=== PATIENT | female | born 1980 | race Caucasian/White ===

== ENCOUNTER 2017-09-19 10:00 | Observation (INO) | payer BC, SELFPAY ==
[2017-09-19 10:02] VITALS: BP 119/63; PULSE 101; RESP 18; TEMP 36.6; O2SAT 98; BMI 25.8
--- NOTE | 2017-09-19 10:14 | US_ITS ---
STUDY: ABDOMINAL ULTRASOUND - RIGHT UPPER QUADRANT REASON FOR VISIT: Female, 37 years old. Abdominal pain. TECHNIQUE: Ultrasound evaluation of the right upper quadrant was performed with real-time and static pinto-scale imaging. TECHNICAL QUALITY: Adequate. COMPARISON: None. FINDINGS: Liver: The liver measures 15.5 cm. There is normal echogenicity of the liver. The bile ducts are within normal limits. There is hepatic color flow. The direction of portal flow is hepatopetal. There is no demonstrated mass lesion. Gallbladder: Normal distended gallbladder. The gallbladder wall measures 3.0 mm. There is a negative sonographic Hanson's sign. There is no pericholecystic fluid. There are no gallstones. Common Bile Duct (C.B.D.): The common bile duct measures 3.0 mm. Pancreas: Normal size of the head, body and tail of the pancreas. There is normal echogenicity of the pancreas. There is no demonstrated pancreatic mass or cyst. Right Kidney: Normal size of the right kidney. The right kidney measures 13.7 cm x 4.6 centimeters x 4.0 cm. Normal renal cortex. The right cortex measures 1.2 cm. There is no demonstrated renal mass or cyst. There is no right hydronephrosis. US/Gallbladder IMPRESSION: Normal right upper quadrant ultrasound examination. Electronically Signed: Bebeto Monteiro MD at 12:02 EST Tel [phone], Service support ,
[2017-09-19] MEDS: Ondansetron 4 MG/2 ML Vial IV (10:38)
[2017-09-19] MEDS: 0.9% Normal Saline 1,000 ML 125 ML IV (10:38)
[2017-09-19] MEDS: HYDROmorphone 1 MG/ML Syringe IV ×3 (10:39→21:05)
[2017-09-19 10:48] LABS: Absolute Lymphocyte Count 1.82 X10^3/ul (0.83-4.51); Absolute Neutrophil Count 9.6 X10^3/uL (2.0-7.7); Basophil# 0.03 X10^3/uL; Basophil% 0.2 % (0-1); Eosinophil# 0.15 X10^3/uL; Eosinophils% 1.1 % (0-5); Hematocrit 35.8 % (37-47); Hemoglobin 11.6 g/dl (12.0-15.0); Lymphocyte # 1.82 X10^3/ul (4.0); Lymphocyte % 13.6 % (19-41); Mean Corp Hgb Conc 32.4 g/gl (32-36); Mean Corpuscular Hgb 28.6 pg (27.0-32.0); Mean Corpuscular Volume 88.4 fL (81-99); Mean Platelet Vol. 9.3 fl (6.2-12.0); Monocyte# 1.64 X10^3/uL; Monocyte% 12.3 % (0-10); Neutrophil % 72.1 % (47-70); Platelet Count 324 K/mm3 (150-450); RBC Distribution Width SD 38.7 fl (35.1-43.9); Red Blood Count 4.05 M/mm3 (4.2-5.4); White Blood Count 13.3 K/mm3 (4.4-11.0)
[2017-09-19 10:50] LABS: Differential Indicated SCAN CRITERIA MET; POSITIVE COUNT NO; POSITIVE DIFFERENTIAL YES; POSITIVE MORPHOLOGY NO
[2017-09-19 10:54] LABS: ALB/GLOB Ratio 0.6 RATIO (0.9-2.4); AST(SGOT) 8 U/L (15-37); Alanine Aminotransfer ALT/SGPT 15 U/L (12-78); Albumin, Serum 2.6 g/dL (3.4-5.0); Alkaline Phosphatase 118 U/L (45-117); Anion Gap 9 (5-15); BUN 8 mg/dL (7-18); BUN/Creat Ratio 11.8 RATIO (10-20); Calcium,Total 8.7 mg/dL (8.5-10.1); Chloride 104 mmol/L (98-107); Creatinine, Serum 0.68 mg/dL (0.55-1.02); EST Glomerular Filtration Rate 104 mL/min (>60); Est Glom Filt Rate - Afr Amer 126 mL/min (>60); Estimated Creatinine Clearance 110.15 ml/min; Globulin 4.5 g/dL (2.2-4.2); Glucose 104 mg/dL (70-110); Lipase 54 U/L (73-393); Potassium 3.3 mmol/L (3.5-5.1); Protein, Total 7.1 g/dL (6.4-8.2); Sodium Level 138 mmol/L (136-145)
[2017-09-19 11:05] LABS: Lactic Acid 0.8 mmol/L (0.4-2.0)
[2017-09-19 11:08] LABS: Pregnancy, Serum, hCG Quali. NEGATIVE Negative (0-9 Nonpreg)
[2017-09-19 12:14] LABS: Color, Urine Amber (Yellow); Glucose, Dipstick Normal (Normal); Ketone-Dipstick 5 mg/dl (Negative); Leukocyte Esterase-Dipstick 500 /ul (Negative); Nitrite-Dipstick Positive (Negative); Occult Blood-Urine 150 /ul (Negative); Protein-Dipstick 30 mg/dl (Negative); Urine Bilirubin Dipstick 1 mg/dL (Negative); Urine Clarity Cloudy (Clear); Urine Urobilinogen 4 mg/dl (Normal)
[2017-09-19 12:19] LABS: Red Blood Cells-Urine 0-5 SEEN /hpf (0-5); Squamous Epithelial Cells - UA 5-10 SEEN /hpf (5-10); White Blood Cells 25-50 SEEN /hpf (0-5)
[2017-09-19 12:20] LABS: Bacteria 4+ /hpf (None Seen); Mucous, Urine RARE /hpf (<or=2+)
[2017-09-19] MEDS: Ceftriaxone 1 GM/50 ML BAG IV ×2 (13:47→16:53)
--- NOTE | 2017-09-19 14:00 | ED.VISSUMM ---
- ER Visit Summary Date of Service: 09/19/17 Chief Complaint: [Abdominal pain/flank pain] History of Present Illness: The patient is a 37 F [presents to the emergency department chief complaint of right-sided abdominal pain/flank pain]. Patient states her pain started 3 days ago. Patient was seen [facility] where she had blood work and urine performed. She had an elevated white blood cell count at that time 16,000. CT scan of the flank obtained showed a normal appendix without any evidence of kidney stones. Patient was discharged to home and states that she was miserable all weekend. Presents with ongoing significant pain. She states that ibuprofen takes the edge off but then the pain comes back. She has had decreased appetite. She denies any nausea or vomiting. She denies any diarrhea. Patient has not had a fever. Physical Examination: [HEENT-PERRLA, EOMI. Cranial nerves II through XII grossly intact. TMs clear. Mucous membranes moist. No adenopathy. Cardiovascular-regular rate and rhythm without murmur or ectopy Lungs-clear to auscultation, chest wall stable without crepitus or subcu emphysema Abdomen-normoactive bowel sounds, soft, tender to palpation over the right upper quadrant and right lower quadrant. There is no rebound, rigidity, or peritoneal signs. Extremities-intact ?4, normal range of motion, normal pulses, atraumatic] Test Results: [CBC with differential obtained showed an elevated white blood cell count of 13.3, hemoglobin 11.6, hematocrit 36, platelets 324. Chemistries unremarkable. LFTs unremarkable. Alk phos was slightly elevated 118. Lipase was 54. Lactic acid was normal at 0.8. HCG was negative. Urinalysis was positive for nitrites, 500 leukocyte esterase, 25-50 WBCs, +4 bacteria]. Ultrasound of the right upper quadrant initially obtained was read as normal Emergency Department Course and Treatment: [Patient was medicated with Dilaudid and Zofran and given Rocephin 1 g IV. Patient had to be remedicated with another milligram of Dilaudid for pain.] Treatment Plan: [I obtained results from patient's visit to [facility]]. Patient CT scan showed a normal appendix without evidence of kidney stones. Her labs showed elevated white blood cell count of 16,000 and her urine was unremarkable at that time. At this point I do not feel any further imaging is indicated. Disposition: [Admit] Impression: [Urinary tract infection/early pyelonephritis] This note was generated with Fiz dictation software. It may contain incorrect words, spelling, and punctuation that were not noted in review of the chart prior to signing ED Disposition - Plan for ED Patient: Chief Complaint: Abd Pain Referrals: [facility] Doctor,Out of [Primary Care Provider] -
--- NOTE | 2017-09-19 14:05 | ED.DCSUM_ITS ---
- ER Visit Summary Date of Service: 09/19/17 Chief Complaint: [Abdominal pain/flank pain] History of Present Illness: The patient is a 37 F [presents to the emergency department chief complaint of right-sided abdominal pain/flank pain]. Patient states her pain started 3 days ago. Patient was seen [facility] where she had blood work and urine performed. She had an elevated white blood cell count at that time 16,000. CT scan of the flank obtained showed a normal appendix without any evidence of kidney stones. Patient was discharged to home and states that she was miserable all weekend. Presents with ongoing significant pain. She states that ibuprofen takes the edge off but then the pain comes back. She has had decreased appetite. She denies any nausea or vomiting. She denies any diarrhea. Patient has not had a fever. Physical Examination: [HEENT-PERRLA, EOMI. Cranial nerves II through XII grossly intact. TMs clear. Mucous membranes moist. No adenopathy. Cardiovascular-regular rate and rhythm without murmur or ectopy Lungs-clear to auscultation, chest wall stable without crepitus or subcu emphysema Abdomen-normoactive bowel sounds, soft, tender to palpation over the right upper quadrant and right lower quadrant. There is no rebound, rigidity, or peritoneal signs. Extremities-intact ?4, normal range of motion, normal pulses, atraumatic] Test Results: [CBC with differential obtained showed an elevated white blood cell count of 13.3, hemoglobin 11.6, hematocrit 36, platelets 324. Chemistries unremarkable. LFTs unremarkable. Alk phos was slightly elevated 118. Lipase was 54. Lactic acid was normal at 0.8. HCG was negative. Urinalysis was positive for nitrites, 500 leukocyte esterase, 25-50 WBCs, +4 bacteria]. Ultrasound of the right upper quadrant initially obtained was read as normal Emergency Department Course and Treatment: [Patient was medicated with Dilaudid and Zofran and given Rocephin 1 g IV. Patient had to be remedicated with another milligram of Dilaudid for pain.] Treatment Plan: [I obtained results from patient's visit to [facility]]. Patient CT scan showed a normal appendix without evidence of kidney stones. Her labs showed elevated white blood cell count of 16,000 and her urine was unremarkable at that time. At this point I do not feel any further imaging is indicated. Disposition: [Admit] Impression: [Urinary tract infection/early pyelonephritis] This note was generated with ClairMail dictation software. It may contain incorrect words, spelling, and punctuation that were not noted in review of the chart prior to signing ED Disposition - Plan for ED Patient: Chief Complaint: Abd Pain Referrals: [facility] Doctor,Out of [Primary Care Provider] -
[2017-09-19 14:46] VITALS: BP 120/76; PULSE 90; RESP 18; O2SAT 99
--- NOTE | 2017-09-19 14:56 | PCM.HP.STD ---
Problem List (1) Sepsis Status: Acute (2) Acute pyelonephritis Status: Acute (3) Anxiety Status: Chronic (4) Depression Status: Chronic History of Present Illness Date of Admission: 09/19/17 Chief Complaint: Right flank pain. The patient is a 37 year old F past medical history as mentioned above presented to the medicine because of right flank pain. Her symptoms started 4 days ago with right flank pain, sharp intense pain, 10 out of 10 in severity, extends down to the right side of the abdomen on the right groin, associated with poor appetite and nausea, aggravated by movement and without relieving factors. She reported subjective fever. On the second day after she had this pain started, she went to outside facility ER where she had blood work, urinalysis and CT scan abdomen and pelvis done and she was discharged home. I reviewed the blood work, urinalysis and a CT scan from the other facility. That CBC revealed significant leukocytosis with white blood cell count of 16,000. BMP was normal. Urinalysis revealed no evidence of acute cystitis. CT scan brain showed no acute findings, no kidney stones or hydronephrosis, normal appendix. Patient continued to have this severe pain without improvement and she decided to come to the emergency room today. She denied urinary symptoms. Denied constipation or diarrhea. In the emergency room, she was afebrile, tachycardic, blood pressure stable and pulse ox is 98% on room air. Her routine blood work is remarkable for leukocytosis, mild hypokalemia at 3.3, lactic acid was normal. LFT and lipase were normal. Serum test was negative. Ultrasound gallbladder performed because patient had minimal tenderness on the right upper quadrant region, ultrasound revealed normal gallbladder, no stones, no pericholecystic fluid and CBD diameter is normal. She is being admitted for acute pyelonephritis with sepsis. Past Medical History Past Medical History (Chronic Problems): Chronic Problems Anxiety (Chronic) Depression (Chronic) Allergies No Known Allergies Allergy (Verified 09/19/17 10:03) Home Medications: Ambulatory Orders Medication Instructions Recorded ALPRAZolam [Xanax] 1 mg PO TID PRN PRN 09/19/17 BuPROPion (XL) [Wellbutrin Xl] 150 mg PO DAILY 09/19/17 Fluoxetine [Prozac] 40 mg PO DAILY 09/19/17 Trazodone HCl 150 mg PO QHS 09/19/17 Surgical History: noncontributory Psychiatric History: No pertinent psych hx INSPECTOR PUBLICATIONS History: No pertinent INSPECTOR PUBLICATIONS history Lives: Spouse/ Significant Other Smoking Status: Never smoker Alcohol: None Drugs: None - *Family History Maternal History Items: No pertinent history Paternal History Items: No pertinent history Review of Systems Constitutional: Reports: Anorexia, Weakness. Denies: Chills, Fever Eyes: Denies: Blurred vision, Double vision, Drainage, Redness HEENT: Denies: Difficulty Hearing, Ear Pain, Eye Pain, Nasal Congestion, Sore Throat Cardiovascular: Denies: Chest Pain, Chest Pressure, Chest Tightness, Heaviness, Palpitations, Syncope Respiratory: Denies: Cough, Shortness of Breath, Shortness of breath at rest, Sputum production, Wheezing Gastrointestinal: Reports: Abdominal Pain. Denies: Constipation, Diarrhea, Hematochezia, Nausea, Melena, Vomiting Genitourinary: Denies: Dysuria, Frequency, Hematuria Musculoskeletal: Denies: Arm Pain, Back Pain, Foot Pain Skin: Denies: Dryness, Rash Neurological: Denies: Balance problems, Double vision, Change in Speech, Slurred speech, Focal weakness, Headaches, Incoordination Psychiatric: Reports: Anxiety, Depression Endocrine: Denies: Change in Body Habitus, Polydipsia VTE Information - Inpt Only VTE Present on Admission: No VTE Mechan Device Prophylaxis: None VTE Pharm Prophylaxis ordered?: No Patient Problems: Active and Suspected Problems Sepsis (Acute) Acute pyelonephritis (Acute) - Physical Exam General: Alert, Oriented x3, Cooperative, - - She is in moderate pain. HEENT: Atraumatic, PERRLA, EOMI Oral: Moist Mucosa, No Gingival or Mucosal Lesions/ Ulcerations Neck: Supple, No JVD, Negative Carotid Bruits Lungs: Clear to auscultation, Normal air movement, No rhonchi, No wheeze, No rales Cardiovascular: Regular rate, Regular Rhythm, Normal S1, Normal S2, PMI Normal Abdomen: Bowel Sounds Present, Soft, Non-Distended, No Hepato-splenomegaly, Tender, - - Minimal right CVA tenderness. Extremities: No clubbing, No cyanosis, No edema Skin: No rashes, No breakdown Lymphatic: No Cervical, Supraclavicular, or Inguinal Adenopathy Neurological: Cranial nerves II-XII grossly intact, Motor Exam 5/5 strength throughout Psych/Mental Status: Normal Affect, Appropriate, Alert and oriented to time, place, person, mood and affect Vital Signs Temp Pulse Resp BP Pulse Ox 98 F 90 18 120/76 99 09/19/17 10:02 09/19/17 14:46 09/19/17 14:46 09/19/17 14:46 09/19/17 14:46 Laboratory Tests 09/19/17 09/19/17 09/19/17 Range/Units 12:10 10:30 10:30 WBC (4.4-11.0) K/mm3 RBC (4.2-5.4) M/mm3 Hgb (12.0-15.0) g/dl Hct (37-47) % MCV (81-99) fL MCH (27.0-32.0) pg MCHC (32-36) g/gl RDW (11.6-14.6) % RDW Differential (35.1-43.9) fl Plt Count (150-450) K/mm3 MPV (6.2-12.0) fl Immature Gran % (Auto) (0.0-0.9) % Neut % (Auto) (47-70) % Lymph % (Auto) (19-41) % [place] % (Auto) (0-10) % Eos % (Auto) (0-5) % Baso % (Auto) (0-1) % Absolute Neuts (auto) (2.0-7.7) X10^3/uL Absolute Lymphs (auto) (0.83-4.51) X10^3/ul Total Counted Differential Comment Diff Path Review Sodium (136-145) mmol/L Potassium (3.5-5.1) mmol/L Chloride (98-107) mmol/L Carbon Dioxide (21.0-32.0) mmol/L Anion Gap (5-15) BUN (7-18) mg/dL Creatinine (0.55-1.02) mg/dL Estim Creat Clear Calc ml/min Est GFR (MDRD) Af Amer (>60) mL/min Est GFR (MDRD) Non-Af (>60) mL/min BUN/Creatinine Ratio (10-20) RATIO Glucose (70-110) mg/dL Lactic Acid 0.8 (0.4-2.0) mmol/L Calcium (8.5-10.1) mg/dL Total Bilirubin (0.20-1.00) mg/dL AST (15-37) U/L ALT (12-78) U/L Alkaline Phosphatase (45-117) U/L Total Protein (6.4-8.2) g/dL Albumin (3.4-5.0) g/dL Globulin (2.2-4.2) g/dL Albumin/Globulin Ratio (0.9-2.4) RATIO Lipase (73-393) U/L Serum , Qual NEGATIVE (0-9 Nonpreg) Negative Urine Color [place] (Yellow) Urine Clarity Cloudy (Clear) Urine pH 6.0 (5.0 - 8.0) Ur Specific [place] 1.020 (1.002-1.030) Urine Protein 30 H (Negative) mg/dl Urine Glucose (UA) Normal (Normal) mg/dl Urine Ketones 5 H (Negative) mg/dl Urine Occult Blood 150 H (Negative) /ul Urine Nitrite Positive H (Negative) Urine Bilirubin 1 H (Negative) mg/dL Urine Urobilinogen 4 H (Normal) mg/dl Ur Leukocyte Esterase 500 H (Negative) /ul Urine RBC 0-5 SEEN (0-5) /hpf Urine WBC 25-50 SEEN (0-5) /hpf Ur Squamous Epith Cells 5-10 SEEN (5-10) /hpf Urine Bacteria 4+ (None Seen) /hpf Urine Mucus RARE (<or=2+) /hpf 09/19/17 09/19/17 Range/Units 10:30 10:30 WBC 13.3 H (4.4-11.0) K/mm3 RBC 4.05 L (4.2-5.4) M/mm3 Hgb 11.6 L (12.0-15.0) g/dl Hct 35.8 L (37-47) % MCV 88.4 (81-99) fL MCH 28.6 (27.0-32.0) pg MCHC 32.4 (32-36) g/gl RDW 12.0 (11.6-14.6) % RDW Differential 38.7 (35.1-43.9) fl Plt Count 324 (150-450) K/mm3 MPV 9.3 (6.2-12.0) fl Immature Gran % (Auto) 0.700 (0.0-0.9) % Neut % (Auto) 72.1 H (47-70) % Lymph % (Auto) 13.6 L (19-41) % [place] % (Auto) 12.3 H (0-10) % Eos % (Auto) 1.1 (0-5) % Baso % (Auto) 0.2 (0-1) % Absolute Neuts (auto) 9.6 H (2.0-7.7) X10^3/uL Absolute Lymphs (auto) 1.82 (0.83-4.51) X10^3/ul Total Counted Not Reportable Differential Comment COMMENT Diff Path Review May foll Sodium 138 (136-145) mmol/L Potassium 3.3 L (3.5-5.1) mmol/L Chloride 104 (98-107) mmol/L Carbon Dioxide 25.0 (21.0-32.0) mmol/L Anion Gap 9 (5-15) BUN 8 (7-18) mg/dL Creatinine 0.68 (0.55-1.02) mg/dL Estim Creat Clear Calc 110.15 ml/min Est GFR (MDRD) Af Amer 126 (>60) mL/min Est GFR (MDRD) Non-Af 104 (>60) mL/min BUN/Creatinine Ratio 11.8 (10-20) RATIO Glucose 104 (70-110) mg/dL Lactic Acid (0.4-2.0) mmol/L Calcium 8.7 (8.5-10.1) mg/dL Total Bilirubin 0.30 (0.20-1.00) mg/dL AST 8 L (15-37) U/L ALT 15 (12-78) U/L Alkaline Phosphatase 118 H (45-117) U/L Total Protein 7.1 (6.4-8.2) g/dL Albumin 2.6 L (3.4-5.0) g/dL Globulin 4.5 H (2.2-4.2) g/dL Albumin/Globulin Ratio 0.6 L (0.9-2.4) RATIO Lipase 54 L (73-393) U/L Serum , Qual (0-9 Nonpreg) Negative Urine Color (Yellow) Urine Clarity (Clear) Urine pH (5.0 - 8.0) Ur Specific [place] (1.002-1.030) Urine Protein (Negative) mg/dl Urine Glucose (UA) (Normal) mg/dl Urine Ketones (Negative) mg/dl Urine Occult Blood (Negative) /ul Urine Nitrite (Negative) Urine Bilirubin (Negative) mg/dL Urine Urobilinogen (Normal) mg/dl Ur Leukocyte Esterase (Negative) /ul Urine RBC (0-5) /hpf Urine WBC (0-5) /hpf Ur Squamous Epith Cells (5-10) /hpf Urine Bacteria (None Seen) /hpf Urine Mucus (<or=2+) /hpf Assessment/Plan Active and Suspected Problems Sepsis (Acute) Acute pyelonephritis (Acute) This is a 37 years old female patient presented to the emergency room because of right flank pain, subjective fever and anoxia and she was found to have acute pyelonephritis and sepsis. #1 acute pyelonephritis/sepsis: Urinalysis reviewed, positive for nitrite and leukocyte esterase, 25-50 WBCs and 4+ bacteria. CT scan abdomen and pelvis without contrast that was done at outside facility on September 16, 2017 revealed no acute findings, no kidney stones or hydronephrosis, normal appendix. She received 1 dose of IV Rocephin, urine culture sent. Plan: Admit to MedSurg floor, regular diet, IV fluids, will give her 1 more gram of IV Rocephin today, then start Rocephin 2 mg IV every 12 hours, IV hydromorphone as needed for pain, IV antiemetics, blood culture, replace potassium with potassium chloride added to IV fluids, repeat CBC and BMP tomorrow morning. #2 mild hypokalemia: Plan to replace potassium with potassium chloride added to the IV fluids, repeat BMP tomorrow morning. #3 anxiety/depression: Continue trazodone, fluoxetine, Wellbutrin and Xanax. #4 DVT prophylaxis: Low risk patient, no prophylaxis indicated. This note was generated with PressConnectation software. It may contain incorrect words, spelling, and punctuation that were not noted in checking the note before signing.
[2017-09-19 15:16] VITALS: BMI 26.8
[2017-09-19 15:17] VITALS: BMI 26.8
[2017-09-19 15:21] VITALS: BP 114/64; PULSE 85; RESP 18; TEMP 36.4; O2SAT 100
[2017-09-19] MEDS: 0.9% NaCl Peripheral Flush Adult/Peds IV ×2 (16:53→21:05)
[2017-09-19] MEDS: Ketorolac 15 MG/ML Vial IV (16:56)
[2017-09-19 21:00] VITALS: BP 129/77; PULSE 99; RESP 20; TEMP 38.4; O2SAT 100
[2017-09-19] MEDS: traZODone 50 MG Tablet 150 MG PO (21:20)
[2017-09-19] MEDS: Acetaminophen 325 MG Tablet 650 MG PO (22:55)
[2017-09-20] VITALS: TEMP 38.3
[2017-09-20 02:20] VITALS: BP 112/68; PULSE 82; RESP 16; TEMP 37.2; O2SAT 93
[2017-09-20] MEDS: Ketorolac 15 MG/ML Vial IV ×3 (05:38→21:29)
[2017-09-20] MEDS: 0.9% NaCl Peripheral Flush Adult/Peds IV (05:39)
[2017-09-20 06:21] LABS: Anion Gap 9 (5-15); BUN 3 mg/dL (7-18); BUN/Creat Ratio 5.7 RATIO (10-20); Calcium,Total 8.5 mg/dL (8.5-10.1); Chloride 107 mmol/L (98-107); Creatinine, Serum 0.53 mg/dL (0.55-1.02); EST Glomerular Filtration Rate 139 mL/min (>60); Est Glom Filt Rate - Afr Amer 168 mL/min (>60); Estimated Creatinine Clearance 141.33 ml/min; Glucose 101 mg/dL (70-110); Potassium 4.2 mmol/L (3.5-5.1); Sodium Level 141 mmol/L (136-145)
[2017-09-20 06:26] LABS: Absolute Lymphocyte Count 2.07 X10^3/ul (0.83-4.51); Absolute Neutrophil Count 5.5 X10^3/uL (2.0-7.7); Basophil# 0.04 X10^3/uL; Basophil% 0.4 % (0-1); Eosinophil# 0.17 X10^3/uL; Eosinophils% 1.9 % (0-5); Hematocrit 30.8 % (37-47); Lymphocyte # 2.07 X10^3/ul (4.0); Lymphocyte % 23.2 % (19-41); Mean Corp Hgb Conc 32.5 g/gl (32-36); Mean Corpuscular Volume 89.3 fL (81-99); Mean Platelet Vol. 9.5 fl (6.2-12.0); Monocyte# 1.05 X10^3/uL; Monocyte% 11.8 % (0-10); Neutrophil # 5.54 X10^3/uL (2.7-7.7); Platelet Count 307 K/mm3 (150-450); RBC Distribution Width CV 11.7 % (11.6-14.6); RBC Distribution Width SD 37.3 fl (35.1-43.9); Red Blood Count 3.45 M/mm3 (4.2-5.4); White Blood Count 8.9 K/mm3 (4.4-11.0)
[2017-09-20 06:29] LABS: Differential Indicated SCAN CRITERIA MET; POSITIVE COUNT NO; POSITIVE DIFFERENTIAL NO; POSITIVE MORPHOLOGY YES
[2017-09-20 08:06] VITALS: O2SAT 95
[2017-09-20 08:14] VITALS: BP 107/64; PULSE 68; RESP 18; TEMP 35.8; O2SAT 98
[2017-09-20] MEDS: HYDROmorphone 1 MG/ML Syringe IV (09:32)
[2017-09-20] MEDS: FLUoxetine 20 MG Capsule 40 MG PO (09:32)
--- NOTE | 2017-09-20 11:13 | CASEMGMT ---
Face to Face with patient for initial transition planning/care coordination assessment. RN CM introduced self and role at [facility], pt voices understanding and consents to assessment at this time. Pt resting in bed, in no distress at this time. Pt A/O x4 at this time and answers all questions appropriately at this time. Care providers, pharmacy, and demographics verified. See attached link. Pt voices no further concerns/needs at this time. Advised pt to ask for CM if any further questions/concerns/needs arise, voices understanding. PLAN: Home with family. Zamzam ROSA, RN CM
[2017-09-20 14:00] VITALS: BP 112/57; PULSE 82; RESP 16; TEMP 36.6; O2SAT 98
[2017-09-20 15:30] LABS: Pathologist Review Reviewed
[2017-09-20] MEDS: HYDROmorphone 0.5 MG/0.5 ML Syringe 1 MG IV (18:02)
[2017-09-20 19:45] VITALS: BP 118/75; PULSE 85; RESP 16; TEMP 36.8; O2SAT 100
--- NOTE | 2017-09-20 20:36 | PCM.PROGNOTE ---
Patient Problems: Active and Suspected Problems Acute pyelonephritis (Acute) Sepsis (Acute) Subjective: Patient is a 37-year-old female with past medical history of anxiety and depression who presented to the [facility] emergency room on 09/19/2017 complaining of right flank pain that started 4 days prior to presentation. Pain was aggravated with movement and there were no relieving factors. Vital signs in the emergency room were temp 98?F, pulse 101, blood pressure 119/63, respiratory rate 18 and she was 98 100% saturated on room air. She later spiked a temp to 101.2?F. Difficult lab included an elevated white blood cell count at 13.3 with a hemoglobin of 11.6 and normal platelets. There were 72% neutrophils. Potassium was low at 3.3 and the lactic acid was 0.8. The UA showed a specific gravity of 1.02 with positive nitrites and 25-50 WBCs per high-power field. There was 4+ bacteria. Gallbladder ultrasound ordered from the ER was normal. He recently had a CT scan of her abdomen and pelvis ordered at another emergency room that showed no hydronephrosis or hydroureter and no evidence of nephrolithiasis. She was admitted to the hospital with a diagnosis of suspected pyelonephritis. She is getting 2 g of Rocephin every 24 hours. The preliminary report on the urine culture is presumptive E. coli sensitivities are pending. Denies nausea, emesis, diarrhea, back pain. Her pain is in a very small area just cephalad from the left iliac crest laterally and it is very difficult to find the exact spot she is having pain. - Physical Exam General: Alert, Oriented x3, Cooperative, No apparent distress HEENT: Atraumatic, PERRLA, EOMI Oral: Moist Mucosa Neck: Supple Lungs: Clear to auscultation Cardiovascular: Regular rate, Regular Rhythm, Normal S1, Normal S2, No murmurs, No rub noted, No Gallop Abdomen: Bowel Sounds Present, Soft, Non-Distended, No Hepato-splenomegaly, Tender - there is a localized area of tenderness which is very small in the lateral left lower quadrant cephalad to the iliac crest....no guarding Extremities: No clubbing, No cyanosis, No edema Skin: No rashes, No breakdown Neurological: Cranial nerves II-XII grossly intact, Neuro grossly intact Psych/Mental Status: Normal Affect, Appropriate Vital Signs Temp Pulse Resp BP Pulse Ox 98.2 F 85 16 118/75 100 09/20/17 19:45 09/20/17 19:45 09/20/17 19:45 09/20/17 19:45 09/20/17 19:45 Oxygen Delivery Method Room Air Weight: 171 lb 4.787 oz Body Mass Index (BMI) 26.8 Intake and Output for Last 24 Hours 09/18/17 09/19/17 09/20/17 23:59 23:59 23:59 Intake Total 3974 Output Total 200 1150 Balance -200 2824 Laboratory Tests Past 24 Hrs 09/20/17 09/20/17 05:35 05:35 WBC 8.9 RBC 3.45 L Hgb 10.0 L Hct 30.8 L MCV 89.3 MCH 29.0 MCHC 32.5 RDW 11.7 RDW Differential 37.3 Plt Count 307 MPV 9.5 Immature Gran % (Auto) 0.700 Neut % (Auto) 62.0 Lymph % (Auto) 23.2 [place] % (Auto) 11.8 H Eos % (Auto) 1.9 Baso % (Auto) 0.4 Absolute Neuts (auto) 5.5 Absolute Lymphs (auto) 2.07 Total Counted Not Reportable Sodium 141 Potassium 4.2 Chloride 107 Carbon Dioxide 25.0 Anion Gap 9 BUN 3 L Creatinine 0.53 L Estim Creat Clear Calc 141.33 Est GFR (MDRD) Af Amer 168 Est GFR (MDRD) Non-Af 139 BUN/Creatinine Ratio 5.7 L Glucose 101 Calcium 8.5 Assessment/Plan Active and Suspected Problems Acute pyelonephritis (Acute) Sepsis (Acute) Impressions 1. Acute pyelonephritis -sepsis ruled out 2. Hypokalemia-resolved 3. Anxiety/depression on multiple psychiatric medications including trazodone, Prozac, Wellbutrin and Xanax Continue the Rocephin and await the results of the sensitivities. The WBC normalized within 24 hours and she is not nauseated or vomiting....probable DC tomorrow. I am not convinced the flank pain is due to pyelonephritis. I think this may be musculoskeletal. I reviewed the ER report form the outside ER and although she had a leukocytosis she was afebrile and the UA showed no signs of Infection and the CT of the abd and the pelvis was unremarkable
[2017-09-20] MEDS: ALPRAZolam 0.5 MG Tablet 1 MG PO (20:44)
[2017-09-20] MEDS: traZODone 50 MG Tablet 150 MG PO (21:28)
[2017-09-21 00:25] VITALS: BP 116/67; PULSE 88; RESP 16; TEMP 37.5; O2SAT 100
[2017-09-21 03:55] VITALS: BP 130/58; PULSE 95; RESP 18; TEMP 37.9; O2SAT 96
[2017-09-21] MEDS: 0.9% NaCl Peripheral Flush Adult/Peds IV ×3 (03:56→14:05)
[2017-09-21] MEDS: HYDROmorphone 0.5 MG/0.5 ML Syringe 1 MG IV ×2 (03:56→10:00)
[2017-09-21] MEDS: Ketorolac 15 MG/ML Vial IV ×2 (06:07→14:05)
[2017-09-21 07:14] VITALS: O2SAT 96
[2017-09-21 08:46] VITALS: BP 107/74; PULSE 77; RESP 18; TEMP 36.7; O2SAT 97
[2017-09-21] MEDS: FLUoxetine 20 MG Capsule 40 MG PO (10:13)
--- NOTE | 2017-09-21 12:56 | PCM.DC ---
- Discharge Diagnoses Current Active Problems: Current Active and Chronic Problems Acute pyelonephritis (Acute) Sepsis (Acute) Anxiety (Chronic) Depression (Chronic) You will use the following diet at home:: No restrictions Your food should be the consistency of: Regular Your liquids should be the consistency of: Regular/Thin Discharge Activity: Return to Normal Activity, May not drive while taking narcotic pain medications. Call your doctor if you observe: Uncontrolled pain, - - diarrhea, rash, sores in the mouth, vaginal itching or discharge Instructions: Urinary Tract Infections in Women Additional Instructions: You have a urinary tract infection due to a bacteria called E. Coli. This bacteria normally lives in everyone's colon. The urethra and anus are very close in proximity in women and it is easy to get a UTI. Remember to wipe from front to back when you are wiping after a bowel movement. Change your sanitary napkin frequently when menstruating. Pending Tests on Discharge: none Allergies/Adverse Reactions: Allergies No Known Allergies Allergy (Verified 09/19/17 10:03) Medications to take at Discharge ALPRAZolam [Xanax] 1 mg PO TID PRN PRN 09/19/17 BuPROPion (XL) [Wellbutrin Xl] 150 mg PO DAILY 09/19/17 Fluoxetine [Prozac] 40 mg PO DAILY 09/19/17 Norgestimate-Ethinyl Estradiol [Tri-Sprintec Tablet] 1 tab PO DAILY 09/19/17 Trazodone HCl 150 mg PO QHS 09/19/17 Acetaminophen [Tylenol Tablet] 650 mg PO Q6H PRN PRN tablet 09/21/17 Cefadroxil 1 gm PO BID #14 tablet 09/21/17 Oxycodone HCl/Acetaminophen [Percocet 5/325] 1 tablet PO Q4H PRN PRN #20 tablet 09/21/17 The following prescriptions were given: Oxycodone HCl/Acetaminophen [Percocet 5/325] 1 tablet PO Q4H PRN PRN #20 tablet PRN Reason: Pain Cefadroxil 1 gm PO BID #14 tablet Primary Care Physician: [facility],Out of [NON-STAFF] - Please follow up with your Primary Care Physician in: 3-5 days Proposed Discharge Date: 09/21/17
--- NOTE | 2017-09-21 13:09 | PCM.DC.SUM ---
Discharge Date and Diagnosis Date of Admission: 09/19/17 Date of Discharge: 09/21/17 - Primary Discharge Diagnosis Active and Suspected Problems Acute pyelonephritis (Acute) due to E. Coli - Secondary Discharge Diagnosis Chronic Problems Anxiety (Chronic) Depression (Chronic) Hospital Course and Treatment Imaging Results: Clinical Impression(s) from Imaging Studies Gallbladder Ultrasound 09/19/17 10:14 IMPRESSION: Normal right upper quadrant ultrasound examination. Electronically Signed: Bebeto Monteiro MD at 12:02 EST Tel [phone], Service support , Laboratory Last Values WBC 8.9 K/mm3 (4.4-11.0) 09/20/17 05:35 RBC 3.45 M/mm3 (4.2-5.4) L 09/20/17 05:35 Hgb 10.0 g/dl (12.0-15.0) L 09/20/17 05:35 Hct 30.8 % (37-47) L 09/20/17 05:35 MCV 89.3 fL (81-99) 09/20/17 05:35 MCH 29.0 pg (27.0-32.0) 09/20/17 05:35 MCHC 32.5 g/gl (32-36) 09/20/17 05:35 RDW 11.7 % (11.6-14.6) 09/20/17 05:35 RDW Differential 37.3 fl (35.1-43.9) 09/20/17 05:35 Plt Count 307 K/mm3 (150-450) 09/20/17 05:35 MPV 9.5 fl (6.2-12.0) 09/20/17 05:35 Immature Gran % (Auto) 0.700 % (0.0-0.9) 09/20/17 05:35 Neut % (Auto) 62.0 % (47-70) 09/20/17 05:35 Lymph % (Auto) 23.2 % (19-41) 09/20/17 05:35 Bennett % (Auto) 11.8 % (0-10) H 09/20/17 05:35 Eos % (Auto) 1.9 % (0-5) 09/20/17 05:35 Baso % (Auto) 0.4 % (0-1) 09/20/17 05:35 Absolute Neuts (auto) 5.5 X10^3/uL (2.0-7.7) 09/20/17 05:35 Absolute Lymphs (auto) 2.07 X10^3/ul (0.83-4.51) 09/20/17 05:35 Total Counted Not Reportable 09/20/17 05:35 Differential Comment COMMENT 09/19/17 10:30 Diff Path Review Reviewed 09/19/17 10:30 Sodium 141 mmol/L (136-145) 09/20/17 05:35 Potassium 4.2 mmol/L (3.5-5.1) 09/20/17 05:35 Chloride 107 mmol/L (98-107) 09/20/17 05:35 Carbon Dioxide 25.0 mmol/L (21.0-32.0) 09/20/17 05:35 Anion Gap 9 (5-15) 09/20/17 05:35 BUN 3 mg/dL (7-18) L 09/20/17 05:35 Creatinine 0.53 mg/dL (0.55-1.02) L 09/20/17 05:35 Estim Creat Clear Calc 141.33 ml/min 09/20/17 05:35 Est GFR (MDRD) Af Amer 168 mL/min (>60) 09/20/17 05:35 Est GFR (MDRD) Non-Af 139 mL/min (>60) 09/20/17 05:35 BUN/Creatinine Ratio 5.7 RATIO (10-20) L 09/20/17 05:35 Glucose 101 mg/dL (70-110) 09/20/17 05:35 Lactic Acid 0.8 mmol/L (0.4-2.0) 09/19/17 10:30 Calcium 8.5 mg/dL (8.5-10.1) 09/20/17 05:35 Total Bilirubin 0.30 mg/dL (0.20-1.00) 09/19/17 10:30 AST 8 U/L (15-37) L 09/19/17 10:30 ALT 15 U/L (12-78) 09/19/17 10:30 Alkaline Phosphatase 118 U/L (45-117) H 09/19/17 10:30 Total Protein 7.1 g/dL (6.4-8.2) 09/19/17 10:30 Albumin 2.6 g/dL (3.4-5.0) L 09/19/17 10:30 Globulin 4.5 g/dL (2.2-4.2) H 09/19/17 10:30 Albumin/Globulin Ratio 0.6 RATIO (0.9-2.4) L 09/19/17 10:30 Lipase 54 U/L (73-393) L 09/19/17 10:30 Serum , Qual NEGATIVE Negative (0-9 Nonpreg) 09/19/17 10:30 Urine Color [place] (Yellow) 09/19/17 12:10 Urine Clarity Cloudy (Clear) 09/19/17 12:10 Urine pH 6.0 (5.0 - 8.0) 09/19/17 12:10 Ur Specific [place] 1.020 (1.002-1.030) 09/19/17 12:10 Urine Protein 30 mg/dl (Negative) H 09/19/17 12:10 Urine Glucose (UA) Normal mg/dl (Normal) 09/19/17 12:10 Urine Ketones 5 mg/dl (Negative) H 09/19/17 12:10 Urine Occult Blood 150 /ul (Negative) H 09/19/17 12:10 Urine Nitrite Positive (Negative) H 09/19/17 12:10 Urine Bilirubin 1 mg/dL (Negative) H 09/19/17 12:10 Urine Urobilinogen 4 mg/dl (Normal) H 09/19/17 12:10 Ur Leukocyte Esterase 500 /ul (Negative) H 09/19/17 12:10 Urine RBC 0-5 SEEN /hpf (0-5) 09/19/17 12:10 Urine WBC 25-50 SEEN /hpf (0-5) 09/19/17 12:10 Ur Squamous Epith Cells 5-10 SEEN /hpf (5-10) 09/19/17 12:10 Urine Bacteria 4+ /hpf (None Seen) 09/19/17 12:10 Urine Mucus RARE /hpf (<or=2+) 09/19/17 12:10 none Operations: None Procedures: None Summary of Care Provided: Patient is a 37-year-old female with past medical history of anxiety and depression who presented to the [facility] emergency room on 09/19/2017 complaining of right flank pain that started 4 days prior to presentation. Pain was aggravated with movement and there were no relieving factors. Vital signs in the emergency room were temp 98?F, pulse 101, blood pressure 119/63, respiratory rate 18 and she was 98 -100% saturated on room air. She later spiked a temp to 101.2?F. Significant lab in the ER included an elevated white blood cell count at 13.3 with a hemoglobin of 11.6 and normal platelets. There were 72% neutrophils. Potassium was low at 3.3 and the lactic acid was 0.8. The UA showed a specific gravity of 1.02 with positive nitrites and 25-50 WBCs per high-power field. There was 4+ bacteria. Gallbladder ultrasound ordered from the ER was normal. She recently had a CT scan of her abdomen and pelvis ordered at another emergency room that showed no hydronephrosis or hydroureter and no evidence of nephrolithiasis. She was admitted to the hospital with a diagnosis of suspected pyelonephritis. She was started on Rocephin. The urine culture grew E. Coli that was resistant to Ampicillin but sensitive to all cephalosporins. she was discharged home on 09/21 with a prescription for cefadroxil 1 g p.o. twice daily to complete 10 days of antibiotics. Prior to discharge she was tolerating a regular diet with no nausea or vomiting. She was also given a prescription for Percocet 5/325 mg, #20, and instructed to take 1 tablet as needed every 4 hours for pain. She will follow-up with her primary care doctor in 3-5 days. This note was generated with [employer] dictation software. It may contain incorrect words, spelling, and punctuation that were not noted in checking the note before signing. Discharge Activity: Return to Normal Activity, May not drive while taking narcotic pain medications. Call your doctor if you observe: Uncontrolled pain, - - diarrhea, rash, sores in the mouth, vaginal itching or discharge Home Medications: Medications to take at Discharge ALPRAZolam [Xanax] 1 mg PO TID PRN PRN 09/19/17 BuPROPion (XL) [Wellbutrin Xl] 150 mg PO DAILY 09/19/17 Fluoxetine [Prozac] 40 mg PO DAILY 09/19/17 Norgestimate-Ethinyl Estradiol [Tri-Sprintec Tablet] 1 tab PO DAILY 09/19/17 Trazodone HCl 150 mg PO QHS 09/19/17 Acetaminophen [Tylenol Tablet] 650 mg PO Q6H PRN PRN tablet 09/21/17 Cefadroxil 1 gm PO BID #14 tablet 09/21/17 Oxycodone HCl/Acetaminophen [Percocet 5/325] 1 tablet PO Q4H PRN PRN #20 tablet 09/21/17 Following Prescrptions Were Given to Patient: Oxycodone HCl/Acetaminophen [Percocet 5/325] 1 tablet PO Q4H PRN PRN #20 tablet PRN Reason: Pain Cefadroxil 1 gm PO BID #14 tablet Primary Care Physician: Fide Doctor,Out of [NON-STAFF] - Please follow up with your Primary Care Physician in: 3-5 days Patient Instructions: Urinary Tract Infections in Women Disposition: Home Minutes spent on discharge:: 30 Patient Condition:: Good Meaningful Use Info Meaningful Use Diagnoses (Choose all that apply): None applicable
[2017-09-21 14:02] VITALS: BP 124/78; PULSE 856; RESP 18; TEMP 36.9; O2SAT 98
== END 2017-09-21 16:16 | disposition home or self-care (01) | DRG 690 ==
LOC: ED 07-25 09:33 → MS2 07-25 09:33
PROVIDERS: Admitting Provider Hospitalist; Emergency Provider Emergency Medicine; Family Provider Nurse Practitioner Family; PCP Nurse Practitioner Family; Visit Provider Internal Medicine
DX: N10 Acute pyelonephritis (principal); F32.9 Major depressive disorder, single episode, unspecified; E87.6 Hypokalemia; F41.9 Anxiety disorder, unspecified; B96.20 Unspecified Escherichia coli [E. coli] as the cause of diseases classified elsewhere; Z79.899 Other long term (current) drug therapy
CPT/HCPCS: 36415; 76705; 80048; 80053; 81001; 83605; 83690; 84703; 85025; 87040; 87086; 87088; 87186; 97802; 99218; 99283; J7030; A4216; G0378; J0696; J2405